=== PATIENT | female | born 1950 | race Two or more races ===

== ENCOUNTER 2024-07-22 07:19 | Outpatient (CLI) | payer OTHER | END 2024-07-22 07:24 | disposition home or self-care (01) | LOC: NUCLEAR 07:19 | PROVIDERS: ATTEND Surgery | DX: C50.211 Malignant neoplasm of upper-inner quadrant of right female breast (principal); C77.0 Secondary and unspecified malignant neoplasm of lymph nodes of head, face and neck; C77.1 Secondary and unspecified malignant neoplasm of intrathoracic lymph nodes | CPT/HCPCS: 78816; A9552 ==

== ENCOUNTER 2024-08-27 06:12 | Day surgery (SDC) | payer OTHER ==
[2024-08-24 11:09] VITALS: BP 142/85
[~2024-08-27] VITALS: Ht 162.6 cm; Wt 62.6 kg
[~2024-08-27 06:12] MED LIST: COSOPT PF EYE1 EACH; MECLIZINE 12.5 MG; XELPROS2.5 ML; ZESTRIL5 MG
[2024-08-27] MEDS ORDERED: CEFAZOLIN SODIUM 1,000 MG VIAL ONE (10:18)
[2024-08-27] MEDS ORDERED: CHLORHEXIDINE GLUCONATE 120 ML BOTTLE TOP ONE (13:43)
[2024-08-27] MEDS ORDERED: POVIDONE-IODINE 118 ML BOTT TOP ONE (13:43)
[2024-08-27] MEDS ORDERED: MORPHINE SULFATE 4 MG/ML VIAL IV ONE ×2 (16:45→17:15)
== END 2024-08-27 17:55 | disposition home or self-care (01) ==
LOC: CIR.AMB 06:12
PROVIDERS: ATTEND Surgery
DX: C50.211 Malignant neoplasm of upper-inner quadrant of right female breast (principal); R59.0 Localized enlarged lymph nodes; N63.31 Unspecified lump in axillary tail of the right breast